=== PATIENT | male | born 1980 | race Caucasian/White ===

== ENCOUNTER → 2020-08-26 | Outpatient (CLI) | payer BC, OTHER ==
[~2020-08-26] MED LIST: ASPIRIN325 PO; CARISOPRODOL 3350 MG PO; FLEXERIL PO; IBUPROFEN 800800 MG PO; MELATONIN10 M3 PO; MOTRIN 600 MG600 M1 OR; MULTIVITAMINS PO; NOHOMEMEDICATIONS; PERCOCET 5-3251 EACH PO
== END ==
LOC: LAB 07:39
PROVIDERS: ATTEND Orthopaedic Surgery
DX: Z01.812 Encounter for preprocedural laboratory examination (principal); Z20.828 Contact with and (suspected) exposure to other viral communicable diseases

== ENCOUNTER 2020-08-31 07:33 | Day surgery (SDC) | payer BC, OTHER ==
[~2020-08-31] VITALS: Ht 180.3 cm; Wt 88.5 kg
[2020-08-31 08:31] VITALS: BP 122/84
[2020-08-31 11:00] VITALS: BP 122/84
--- NOTE | 2020-09-02 13:26 | O ---
[facility] [place] [address] [place] [address] OPERATIVE REPORT Name: BENOIT VALLADARES Room #: [facility] M.R.#: [id number] Admission: 08/31/20 Attend Phys: Abelardo Sexton MD Discharge: 08/31/20 Date of : 78 Report #: [id number] THIS REPORT FOR: cc: Clifton Orosco MD Clifton Dhaliwal MD, FAAFP, FACEP, David J. MD ~ CC: Abelardo Orosco DATE OF SERVICE: 08/31/2020 PREOPERATIVE DIAGNOSES: Left knee meniscus tear and lateral parameniscal ganglion cyst. POSTOPERATIVE DIAGNOSES: Left knee meniscus tear and lateral parameniscal ganglion cyst. PROCEDURE: Left knee excision of parameniscal ganglion cyst and left knee arthroscopy with debridement of chondromalacia medial femoral condyle and patellofemoral articulation. SURGEON: Abelardo Sexton MD INDICATIONS: This active 40-year-old gentleman complains of persistent recurring left knee pain and swelling. Intermittently, he has a moderately large painful mass just at the lateral border of the patellar tendon near the joint line. Findings are consistent with a parameniscal ganglion cyst in this region. The size of the cyst varies with time and inactivity. Clinical exam and MRI study are also suggestive of some mild meniscus damage, possibly involving both the medial and lateral meniscus. Given these findings and persistent symptoms, we have elected to go ahead with both surgical debridement of the ganglion cyst and arthroscopic assessment and debridement of the knee. DESCRIPTION OF PROCEDURE: The patient was taken to the operating room where he was placed under general anesthesia. The ganglion cyst, which was noted in the office just 1 or 2 weeks ago to be rather sizeable, has now diminished markedly in size. I discussed this with the patient preoperatively and we elected to go ahead with surgical exploration and excision of whatever remnants of the ganglion cyst might be there. The knee was meticulously prepped and draped. A thigh tourniquet was applied and inflated to 300 mmHg. A longitudinal skin incision was made directly over the soft tissue prominence along the lateral border of the patellar tendon just adjacent to the joint line. There was an area of obvious soft tissue irregularity was some synovial hypertrophy and a small amount of gelatinous fluid consistent with a small ganglion cyst. This area of tissue was excised exposing the fascia. There was a small opening in the fascia, probably consistent with the neck of the ganglion cyst extending [address] [address] OPERATIVE REPORT Name: SANDRA VALLADARESSHUA ADRIAN Room #: [facility].Kalli.#: [id number] Admission: 08/31/20 Attend Phys: Abelardo Sexton MD Discharge: 08/31/20 Date of : 78 Report #: [id number] down into the joint. This area was gently debrided and some additional synovial debris was removed. No other abnormalities were identified. The incision site was used as an arthroscopy portal. First a lateral parapatellar portal was placed and the knee was inflated with normal saline. The arthroscope and shaver were then introduced through parapatellar tendon approaches with the lateral approach going through the previously placed skin incision. The knee was inspected and the findings documented with arthroscopic photography. 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 This was most significant finding in the medial compartment. This area was debrided back to a more smooth stable even base. No significant damage on the medial tibial plateau was noted. The medial meniscus demonstrated only minor fraying along its inner margin and very limited debridement of those areas, particularly at the posterior medial corner was performed. No other abnormalities in the medial compartment were identified. Intercondylar notch reveals the cruciate ligaments to be present and functioning normally. No debridement here was necessary. The patellofemoral articulation reveals minor chondromalacia on the patellar surface, but a more significant deep area of chondral damage in the deepest portion of the trochlea on the femur. The margins were somewhat rough and irregular and delaminating. These areas were gently debrided, leaving a more smooth even base. The patella seemed to track nicely and no other problems in this area were identified. The lateral compartment reveals significant synovial hypertrophy in the anterior lateral corner probably related to the ganglion cyst previously noted. I did not identify any clear gelatinous fluid or ganglion material, but the area of synovial hypertrophy adjacent to the anterior horn of the lateral meniscus was debrided. I suspect any remnants of the cyst were debrided at this point. The meniscus itself actually looks much better than I might have anticipated with only minor fissuring along its inner margin. There was no area of unstable meniscus and no areas of major damage, which would require further debridement. The cartilage surfaces on both the lateral femoral condyle and lateral tibial plateau looked good without any significant damage. No further debridement was necessary. The entire knee was copiously irrigated. All excess fluid was evacuated from the knee. The knee was then injected with 40 mg of Depo-Medrol and 20 mL of 0.5% Marcaine with epinephrine. The two arthroscopy portals were closed with 4-0 nylon. The larger incision site was closed using 3-0 Monocryl in the fascia oversewing the small defect and 3-0 Monocryl in the subcutaneous tissues with [address] [address] OPERATIVE REPORT Name: BENOIT VALLADARES ADRIAN Room #: [facility].#: [id number] Admission: 08/31/20 Attend Phys: Abelardo Sexton MD Discharge: 08/31/20 Date of : 78 Report #: [id number] 4-0 nylon in the skin. A sterile dressing was applied. The patient was awakened and returned to the recovery room in good condition. <ELECTRONICALLY SIGNED> By: Abelardo Sexton MD 09/02/20 1326 [id number] Abelardo Sexton MD /nt
== END 2020-08-31 11:50 | disposition home or self-care (01) ==
LOC: OR 07:33 → TBA 07:33 → OR 08:43
PROVIDERS: ATTEND Orthopaedic Surgery
DX: M25.562 Pain in left knee (principal); M23.001 Cystic meniscus, unspecified lateral meniscus, left knee; M23.242 Derangement of anterior horn of lateral meniscus due to old tear or injury, left knee; M23.204 Derangement of unspecified medial meniscus due to old tear or injury, left knee; M94.262 Chondromalacia, left knee; Z98.890 Other specified postprocedural states; Z79.899 Other long term (current) drug therapy; Z98.52 Vasectomy status; Z88.8 Allergy status to other drugs, medicaments and biological substances
CPT/HCPCS: 50010; 50101; 50405; 56526; 56527; 57103; 57180; 62110; 62900; 70005